=== PATIENT | female | born 1970 | race African-American/Black ===

== ENCOUNTER 2018-12-08 17:59 | Emergency (ER) | payer SELFPAY ==
[2018-12-08] MEDS ORDERED: ASPIRIN 81 MG CHEW TAB PO ONE (18:01)
--- NOTE | 2018-12-08 18:01 | ED Physician Documentation ---
General Adult - HISTORIAN Historian: patient - HPI Stated Complaint: chest pain Chief Complaint: General Adult Onset: minutes Timing: still present Severity: moderate Further Comments: yes (Pt is a 48 yo female with c/o shortness of breath and tightness or discomfort in her L upper chest and L arm. Pt was sitting in a restaurant eating when sx occurred. Pt has been stressed recently and had an argument earlier today with her sister. Pt has presented with similar sx before, she says, but without a finding. Pt had been rx'd a medicine for anxiety in the past but discontinued it shortly after she started becasue it "made her feel worse." Later in the visit pt c/o headache and states that she has had headaches in the past, which she called migraine headaches. Pt was unfamiliar with meds typically used to tx migraine and may have self-diagnosed.) - ROS CONST: weakness, other (lightheadedness) EYES/ENT: none CVS/RESP: chest pain (discomfort in upper L chest), shortness of breath GI/: none MS/SKIN/LYMPH: none. denies: calf pain NEURO/PSYCH: headache, dizziness - PAST HX Past History: hypertension, other (DM) Allergies/Adverse Reactions: Allergies Allergy/AdvReac Type Severity Reaction Status Date / Time No Known Allergies Allergy Verified 12/08/18 18:23 Home Medications: Ambulatory Orders Medication Instructions Recorded NK 12/08/18 - SOCIAL HX Smoking History: cigarettes - FAMILY HX Family History: No (unk) - VITAL SIGNS Vital Signs: Vital Signs Temp Pulse Resp BP Pulse Ox 120/78 02/17/15 18:11 - REVIEWED ASSESSMENTS Nursing Assessment Reviewed: Yes Vitals Reviewed: Yes Progress - Progress Progress: NS 500 cc IVF Toradol 30 mg IV Ativan 1 mg IV 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 Pt left AMA and did not wait to sign out. - EKG/XRAY/CT EKG: NSR (HR=81; short AK interval; normal axis.) XRAY: chest (neg) General Adult Physical Exam - PHYSICAL EXAM GENERAL APPEARANCE: moderate distress (anxious) EENT: pharynx normal NECK: normal inspection, supple RESPIRATORY: no resp distress, chest non-tender, breath sounds normal CVS: reg rate & rhythm, heart sounds normal ABDOMEN: soft, no organomegaly, normal bowel sounds BACK: normal inspection, no CVA tenderness SKIN: warm/dry, normal color EXTREMITIES: non-tender, normal range of motion, no evidence of injury. No: tenderness NEURO: oriented X3, motor nml, sensation nml, other (anxious) Discharge Clincal Impression: c/o sob, headache, possible anxiety Referrals: Primary Doctor,No [Primary Care Provider] - Condition: Fair Disposition: 07 AGAINST MEDICAL ADVICE Decision to Admit: NO Decision Time: 20:29
[2018-12-08] MEDS ORDERED: 0.9 % SODIUM CHLORIDE 500 ML IV ONE (18:17)
[2018-12-08 18:20] VITALS: BP 160/90
[2018-12-08] MEDS ORDERED: LORazepam 1 MG TABLET PO ONE (18:22)
[2018-12-08] MEDS ORDERED: KETOROLAC TROMETHAMINE 30 MG/1ML VIAL IVP ONE (19:01)
[2018-12-08 19:07] LABS: eGFR (Non-African) > 60
[2018-12-08 19:11] LABS: MEAN CORPUSCULAR HEMOGLOBIN 30.5 pg (28.0-34.0)
[2018-12-08] MEDS ORDERED: 0.9 % SODIUM CHLORIDE 1,000 ML IV ONE (19:42)
[2018-12-08 19:46] LABS: PLT EST. EST. AGREES W/PLT CT
[2018-12-08 19:47] LABS: BASOPHILS % 1 % (0-2); EOSINOPHILS % 0 % (0-7); MONOCYTES % 3 % (0-11); SEGMENTED NEUTROPHILS % 52 % (39-79)
[2018-12-08] MEDS ORDERED: LORazepam 2 MG/ML VIAL IVP ONE (19:49)
[2018-12-08] MEDS ORDERED: ACETAMINOPHEN 500 MG TABLET PO ONE (19:55)
--- NOTE | 2018-12-09 04:15 | Diagnostic Imaging Report ---
CHEN REAVES [facility] [id number] [facility] [address] [place] [id number] Report Submission Date: Dec 08, 2018 7:00:08 PM COUNSELOR AIDE Patient Study Name: JESSICA ZAMORA Date: Dec 08, 2018 6:30:51 PM COUNSELOR AIDE Modality Type: CR Gender: F Description: CHEST 1 VIEW : 74 Institution: [facility] Physician: CHEN REAVES Portable chest Clinical history: Chest pain and syncope. Findings: Examination of the chest single portable upright view demonstrates the lungs to be clear. Cardiovascular and mediastinal silhouettes are within normal limits. Bony thorax is intact. Impression: 1. Negative chest. Electronically signed on Dec 08, 2018 7:00:08 PM COUNSELOR AIDE by: Adrian VERDE
== END 2018-12-08 20:08 | disposition left against medical advice (07) ==
LOC: ED 17:59
DX: R06.02 Shortness of breath (principal); R51 Headache
CPT/HCPCS: 36415; 71045; 80053; 82550; 82553; 83880; 84484; 85025; 85379; 93005; 96374; 99283; 99285; J1885; J7060; S1016